=== PATIENT | female | born 1990 | race African-American/Black ===

== ENCOUNTER 2023-08-11 09:15 | Emergency (ER) | payer MEDICAID, OTHER ==
[~2023-08-11] VITALS: Ht 175.3 cm; Wt 74.4 kg
[2023-08-11 09:23] VITALS: O2SAT 100
[2023-08-11] MEDS ORDERED: PHEN51CR24 TP (09:45)
[2023-08-11] MEDS ORDERED: POLY17PO3 MT (09:46)
[2023-08-11 10:44] VITALS: BP 132/81; PULSE 87; RESP 19; TEMP 98.2
== END 2023-08-11 10:45 | disposition home or self-care (01) ==
LOC: ER 09:15
DX: K64.4 Residual hemorrhoidal skin tags (principal); K59.00 Constipation, unspecified
CPT/HCPCS: 99281; 99282

== ENCOUNTER 2024-02-15 21:20 | Emergency (ER) | payer OTHER ==
[~2024-02-15] VITALS: Ht 175.3 cm; Wt 84.0 kg
[~2024-02-15 21:20] MED LIST: PHEN51CR24 TP; POLY17PO3 MT
[2024-02-15 21:39] VITALS: O2SAT 100
[2024-02-15] MEDS ORDERED: AMOX1TAB16 MT (23:16)
[2024-02-15] MEDS: KETOROLAC 15MG/ML VIAL IM ONE (23:34)
[2024-02-15 23:57] VITALS: BP 139/75; PULSE 81; RESP 20; TEMP 98.4
== END 2024-02-15 23:58 | disposition home or self-care (01) ==
LOC: ER 21:20
DX: L03.011 Cellulitis of right finger (principal)
CPT/HCPCS: 99283; 81025; 96372; J1885

== ENCOUNTER 2024-03-22 05:16 | Emergency (ER) | payer OTHER ==
[~2024-03-22] VITALS: Ht 175.3 cm; Wt 73.0 kg
[~2024-03-22 05:16] MED LIST changes: +AMOX1TAB16 MT
[2024-03-22 05:37] VITALS: BP 118/58; PULSE 85; RESP 18; TEMP 98; O2SAT 100
[2024-03-22] MEDS ORDERED: BO1 TP (06:00)
[2024-03-22] MEDS ORDERED: CEPH500C2 MT (06:00)
== END 2024-03-22 06:07 | disposition home or self-care (01) ==
LOC: ER 05:27
DX: S61.001A Unspecified open wound of right thumb without damage to nail, initial encounter (principal); X58.XXXA Exposure to other specified factors, initial encounter; Y93.89 Activity, other specified; Y92.89 Other specified places as the place of occurrence of the external cause; Y99.8 Other external cause status
CPT/HCPCS: 99281